=== PATIENT | male | born 2000 | race Two or more races ===

== ENCOUNTER 2021-09-01 13:28 | Emergency (ER) | payer MEDICAID, OTHER ==
[~2021-09-01] VITALS: Ht 182.9 cm; Wt 95.3 kg
[2021-09-01 16:24] VITALS: BP 149/78
[2021-09-01] MEDS ORDERED: ACETAMINOPHEN/CODEINE#3 (300/30mg) TAB PO ONE (16:30)
[2021-09-01] MEDS ORDERED: ONDANSETRON ODT 4 MG TAB PO ONE (16:30)
== END 2021-09-01 17:29 | disposition home or self-care (01) ==
LOC: ER 13:28
DX: S16.1XXA Strain of muscle, fascia and tendon at neck level, initial encounter (principal); S39.012A Strain of muscle, fascia and tendon of lower back, initial encounter; R51.9 Headache, unspecified; V43.53XA Car driver injured in collision with pick-up truck in traffic accident, initial encounter; Y93.89 Activity, other specified; Y92.410 Unspecified street and highway as the place of occurrence of the external cause; Y99.8 Other external cause status
CPT/HCPCS: 70450; 72100; 72125; 72131; 99284; Q0162

== ENCOUNTER 2022-06-21 02:59 | Emergency (ER) | payer MEDICAID ==
[~2022-06-21] VITALS: Ht 182.9 cm; Wt 97.0 kg
[2022-06-21 05:13] LABS: Total Protein 8.3 g/dL (6.4-8.2)
[2022-06-21 05:21] LABS: Potassium 4.3 mmol/L (3.5-5.1)
[2022-06-21 05:22] LABS: Albumin 4.4 g/dL (3.4-5.0); BUN/Creatinine Ratio 10.8; Calcium 9.3 mg/dL (8.5-10.1)
[2022-06-21 05:25] LABS: Basophils # (auto) 0 10 ^3/uL (0-0.2); Basophils % (auto) 0.2 % (0.0-2.0); Eosinophils # (auto) 0.1 10 ^3/uL (0-0.8); Eosinophils % (auto) 0.6 % (0.0-7.0); Hematocrit 47.5 % (41.0-53.0); Hemoglobin 16.3 g/dL (13.5-17.5); Lymphocytes # (auto) 1.5 10 ^3/uL (0.4-5.4); Lymphocytes % (auto) 15.9 % (10.0-50.0); Mean Corpuscular Hemoglobin 27.6 pg (28.0-32.0); Mean Corpuscular Hgb Conc. 34.3 g/dL (32.0-36.0); Mean Corpuscular Volume 80.5 fL (80.0-100.0); Monocytes # (auto) 0.8 10 ^3/uL (0-1.3); Monocytes % (auto) 7.9 % (0.0-12.0); Neutrophils # (auto) 7.3 10 ^3/uL (1.6-8.6); Neutrophils % (auto) 75.4 % (37.0-80.0); Nucleated Red Blood Cells % 0.1 %; Red Cell Distribution Width 13.6 % (11.8-14.3); White Blood Cell 9.7 10^3/uL (4.4-10.8)
[2022-06-21 08:46] LABS: Urine Amorphous Crystal FEW /hpf (None Seen); Urine Bacteria FEW /hpf (None Seen); Urine Blood Negative /uL (Negative); Urine Mucus FEW (None Seen); Urine Specific Gravity 1.039 (1.001-1.035); Urine WBC 2 /hpf (0 - 3)
[2022-06-21] MEDS ORDERED: CEPH-322 PO (08:56)
[2022-06-21] MEDS ORDERED: METR500T PO (08:56)
[2022-06-21 09:07] VITALS: BP 149/72
== END 2022-06-21 09:08 | disposition home or self-care (01) ==
LOC: ER 02:59
DX: I88.0 Nonspecific mesenteric lymphadenitis (principal)
CPT/HCPCS: 36415; 74176; 80053; 81001; 83690; 85025

== ENCOUNTER 2024-02-26 18:43 | Emergency (ER) | payer MEDICAID, OTHER ==
[~2024-02-26] VITALS: Ht 182.9 cm; Wt 101.1 kg
[~2024-02-26 18:43] MED LIST: CEPH250C PO; METR500T PO
[2024-02-26] MEDS ORDERED: IBUP-1455 PO (20:51)
[2024-02-26] MEDS ORDERED: AZIT4SOL EACHEYE (20:51)
[2024-02-26] MEDS: TETRACAINE HCL 0.5% OPTH(EYE) SOLN 4ML EACHEYE ONE (21:03)
[2024-02-26] MEDS: IBUPROFEN 800 MG TAB PO ONE (21:04)
[2024-02-26 21:08] VITALS: BP 137/90; PULSE 79; RESP 18; TEMP 100.6; O2SAT 99
== END 2024-02-26 21:07 | disposition home or self-care (01) ==
LOC: ER 18:43
DX: T65.91XA Toxic effect of unspecified substance, accidental (unintentional), initial encounter (principal); Z79.899 Other long term (current) drug therapy; Y92.89 Other specified places as the place of occurrence of the external cause